=== PATIENT | male | born 1970 | race Caucasian/White ===

== ENCOUNTER 2018-07-30 19:08 | Emergency (ER) | payer BC ==
[2018-07-30 19:30] VITALS: BP 156/101
--- NOTE | 2018-07-30 19:33 | UC ---
Lower Extremity/Ankle HPI - HPI Summary HPI Summary: 48 y/o male presents to the urgent care c/o RT calf pain s/p pop starting his car around 17:30PM today. Pt reports he heard a snap in his Rt calf. His pain is constant, dull and pressure like about 4/10. Pt can move leg w/o any difficulty. Pt denies numbness or tingling sensation over the RT lower leg, recent travel, smoking, Hx of DVT, SOB, palpitation, SOB, chest pain, abdominal pain, N/V/D. He has not taking anything to alleviate symptoms. - History of Current Complaint Chief Complaint: UCLowerExtremity Stated Complaint: RIGHT LEG PAIN Time Seen by Provider: 07/30/18 19:31 Hx Obtained From: Patient Onset/Duration: Sudden Onset, Lasting Hours - 2 hrs Severity Initially: Mild Severity Currently: Mild Pain Intensity: 4 Pain Scale Used: 0-10 Numeric Aggravating Factor(s): Standing, Ambulation Alleviating Factor(s): Rest, Elevation, Ice Able to Bear Weight: Yes - Risk Factors Gout Risk Factors: Negative DVT Risk Factors: Negative Septic Arthritis Risk Factor: Negative - Allergies/Home Medications Allergies/Adverse Reactions: Allergies Allergy/AdvReac Type Severity Reaction Status Date / Time No Known Allergies Allergy Verified 07/30/18 19:26 Home Medications: Home Medications Citalopram TAB* [Celexa TAB*] 40 mg PO DAILY 07/30/18 [History Confirmed ] lamoTRIgine [Lamictal] 100 mg PO DAILY 07/30/18 [History Confirmed 07/30/18] PMH/Surg Hx/FS Hx/Imm Hx Previously Healthy: Yes GI/ History: Kidney Stones Psychological History: Depression - Surgical History Surgical History: None - Family History Known Family History: Positive: None - Pt denies FMHX - Social History Occupation: Employed Full-time Lives: With Family Alcohol Use: Weekly Alcohol Amount: 3-4X A WEEK Substance Use Type: None Smoking Status (MU): Never Smoked Tobacco Review of Systems Constitutional: Negative Skin: Negative Eyes: Negative ENT: Negative Respiratory: Negative Cardiovascular: Negative Gastrointestinal: Negative Genitourinary: Negative Motor: Negative Neurovascular: Negative Musculoskeletal: Other: - RT lower leg pain s/p injury Neurological: Negative Psychological: Negative Is Patient Immunocompromised?: No All Other Systems Reviewed And Are Negative: Yes Physical Exam - Summary Physical Exam Summary: Vital Signs Reviewed: Yes Appearance: Well-Appearing, No Pain Distress, Well-Nourished, Obese male sitting in the examining table w/o any apparent pain distress Eyes: Positive: Conjunctiva Clear - PERRLA< ALEXANDRA, fundi grossly WNL ENT: Positive: Normal ENT inspection, Hearing grossly normal, Pharynx normal, TMs normal, Uvula midline Neck: Positive: Supple, Nontender, No Lymphadenopathy Respiratory: Positive: Chest non-tender, Lungs clear, Normal breath sounds, No respiratory distress Cardiovascular: Positive: RRR, No Murmur, Pulses Normal, Brisk Capillary Refill Abdomen Description: Positive: Nontender, No Organomegaly, Soft. Negative: CVA Tenderness (R), CVA Tenderness (L) Bowel Sounds: Positive: Present Extremities: Rextremity without deformity or asymmetry when compared to the R/ L. No soft tissue swelling or edema. No overlying erythema, warmth, discoloration. No lesions or break in skin integrity. Diameter of calves 17.6cm RT calf and 17.0cm LF calf. Soft tissues of posterior lower legs are soft, supple, nontender and no palpable cords or evidence of thrombophlebitis. No evidence of gangrene or compartment syndrome. Medial thigh is without soft tissue swelling or tender to palpation. Negative Homans sign. Point tenderness at the mid posterior Rt lwoer leg w/ a descrete bump. no tender cords. No proximal lymphangitis or lymphadenopathy. castro test negative Neurological Exam: Normal Psychological Exam: Normal Skin Exam: Normal Triage Information Reviewed: Yes Vital Signs: Initial Vital Signs Temp 97.6 F 07/30/18 19:22 Pulse 107 07/30/18 19:22 Resp 19 07/30/18 19:22 BP 156/101 07/30/18 19:22 Pulse Ox 99 07/30/18 19:22 Lower Extremity Course/Dx - Course Course Of Treatment: 48 y/o male presents to the urgent care c/o RT calf pain s/ p pop starting his car around 17:30PM today. Pt reports he heard a snap in his Rt calf. His pain is constant, dull and pressure like about 4/10. Pt can move leg w/o any difficulty. Pt denies numbness or tingling sensation over the RT lower leg, recent travel, smoking, Hx of DVT, SOB, palpitation, SOB, chest pain , abdominal pain, N/V/D. He has not taking anything to alleviate symptoms. Hx obtained. Pt w/ point tenderness on the mid RT posterior lower leg w/o swelling , bruising or ecchymosis, negative roman's sign or castro test on examination. Pt's symptoms discussed w/ Dr Holguin and he thinks it is probably a gastromenicus tear and recommendes immobilizatiion w/ Camron bandage and f/y w/ physical therapy. Pt's Rt lower leg immobilized w/ Camron-bandage, Rx Ibuprofen PO and given referral w/ orhtopedic from Sports Medicine for further management. Pt 's BP is elevated today advised to decrease salt in diet, monitor BP and f/u with PCP for further management. D/C instructions explained. Pt understood and agreed w/ plan of care and left clinic ambulating and hemodynamically stable. - Differential Dx/Diagnosis Differential Diagnosis/HQI/PQRI: Compartment Syndrome, Contusion, DVT, Fracture (Closed), Sprain, Strain, Tendonitis, Tenosynovitis, Other - muscle tear Provider Diagnoses: 1- RT lower leg pain s/p injury. 2- Rt lower leg muscle strain. 3- Elevated BP w/o Hx of HTN Discharge - Sign-Out/Discharge Documenting (check all that apply): Patient Departure - D/C home All imaging exams completed and their final reports reviewed: No Studies - Discharge Plan Condition: Stable Disposition: HOME Prescriptions: Ibuprofen TAB* [Motrin TAB* 800 MG] 800 mg PO Q6H PRN #30 tab PRN Reason: Pain Patient Education Materials: Muscle Strain (ED), Low-Sodium Diet (ED) Referrals: [facility] [Provider Group] - 3 Days No Primary Care Phys,NOPCP [Primary Care Provider] - Additional Instructions: 1-You probably have a grastromenicus muscle tear 2-Please take ibuprofen PO q6-8hrs prn as instructed after meals to alleviate pain and swelling. 3-Please apply ice, keep your leg immobilized with the Camron bandage. Avoid strenuous exercise or standing for long periods of time. Keep leg elevated 4- Please f/u with [facility] referral in 3 days for further evaluation and treatment. 5-Your BP is elevated today. please decrease salt in your diet, monitor BP and if it continues to be elevated please f/u with your PCP for further management 6- If you develop SOB, chest pain, or palpitation please go immediately to the ER for further management - Billing Disposition and Condition Condition: STABLE Disposition: Home
[2018-07-30] MEDS ORDERED: Ibuprofen TAB* 400 MG PO ONE (19:58)
--- NOTE | 2018-07-31 07:12 | UC ---
Discharge - Sign-Out/Discharge Documenting (check all that apply): Post-Discharge Follow Up All imaging exams completed and their final reports reviewed: No Studies - Discharge Plan Condition: Stable Disposition: HOME Prescriptions: Ibuprofen TAB* [Motrin TAB* 800 MG] 800 mg PO Q6H PRN #30 tab PRN Reason: Pain Patient Education Materials: Muscle Strain (ED), Low-Sodium Diet (ED) Referrals: [facility] [Provider Group] - 3 Days No Primary Care Phys,NOPCP [Primary Care Provider] - Additional Instructions: 1-You probably have a grastromenicus muscle tear 2-Please take ibuprofen PO q6-8hrs prn as instructed after meals to alleviate pain and swelling. 3-Please apply ice, keep your leg immobilized with the Jason bandage. Avoid strenuous exercise or standing for long periods of time. Keep leg elevated 4- Please f/u with [facility] referral in 3 days for further evaluation and treatment. 5-Your BP is elevated today. please decrease salt in your diet, monitor BP and if it continues to be elevated please f/u with your PCP for further management 6- If you develop SOB, chest pain, or palpitation please go immediately to the ER for further management - Billing Disposition and Condition Condition: STABLE Disposition: Home
== END 2018-07-30 20:19 | disposition home or self-care (01) ==
LOC: UCCORT 19:08
DX: S86.911A Strain of unspecified muscle(s) and tendon(s) at lower leg level, right leg, initial encounter (principal); X50.0XXA Overexertion from strenuous movement or load, initial encounter; Y93.89 Activity, other specified; Y92.9 Unspecified place or not applicable; R03.0 Elevated blood-pressure reading, without diagnosis of hypertension; F32.9 Major depressive disorder, single episode, unspecified
CPT/HCPCS: 99202; A9270-GY; G0463